=== PATIENT | male | born 1965 | race Caucasian/White ===

== ENCOUNTER → 2022-05-29 | Outpatient (CLI) | payer BC ==
[~2022-05-29] MED LIST: ASPIR-LOW81 MG PO; BYSTOLIC5 MG PO; CRESTOR10 MG PO; LOVAZA1 GM PO; nexium; ventolin inhaler
== END ==
LOC: RAD 13:03
PROVIDERS: ATTEND Family Medicine
DX: R07.9 Chest pain, unspecified (principal); I10 Essential (primary) hypertension; Z87.891 Personal history of nicotine dependence
CPT/HCPCS: 71250; 93306